=== PATIENT | male | born 1980 ===

== ENCOUNTER → 2020-09-05 12:36 | Outpatient (CLI) | payer OTHER, SELFPAY ==
--- NOTE | 2020-09-05 | DI.MRI.S_ITS ---
PROCEDURE: MR SHOULDER RT W CON INDICATIONS: Unspecified rotator cuff tear TECHNIQUE: After the administration of dilute intra-articular Gadolinium contrast, oblique coronal T1 and T2 spin echo with fat saturation, oblique sagittal T1 spin echo with and without fat saturation, oblique sagittal T2 fast spin echo with fat saturation, axial T1 spin echo with fat saturation through the shoulder. COMPARISON: [facility], , [place] ARTHROGRAM SHOULDER RT, 09/05/2020, 12:53. FINDINGS: Image quality: Excellent. Rotator cuff: There is moderate grade intrasubstance tearing of the distal supraspinatus tendon measuring 3 mm in anterior-posterior dimension. Additional low grade intrasubstance tearing is seen in the posterior supraspinatus/anterior infraspinatus tendon. These tears do not fill with intra-articular contrast material. Findings are superimposed on moderate supraspinatus and infraspinatus tendinosis. The teres minor tendon is intact. There is mild subscapularis tendinosis. No significant rotator cuff muscle atrophy is seen. Bones and bursae: Chronic traction cystic changes are seen at the greater tuberosity and the posterosuperior humeral head near the rotator cuff tendon insertions. No focal glenoid humeral cartilage defect is identified. No acute bone marrow contusions or fractures. No intra-articular loose body is seen. There is mild to moderate acromioclavicular joint osteoarthrosis. There is trace subacromial/subdeltoid bursal fluid that does not communicate with the glenohumeral joint space. Capsule and soft tissues: There is nondisplaced tearing of the superior to posterosuperior labrum. The long head of the biceps tendon demonstrates normal location and morphology. The rotator interval appears normal, without fibrosis. The inferior glenohumeral ligament is normal in thickness. IMPRESSION: 1. Nondisplaced tearing of the superior to posterosuperior labrum. 2. Moderate grade intrasubstance tearing of the supraspinatus tendon at the footprint. Additionally, low grade intrasubstance tearing is seen in the posterior supraspinatus/anterior infraspinatus tendon. Findings are superimposed on moderate tendinosis. 3. Mild subscapularis tendinosis. 4. Mild to moderate acromioclavicular joint osteoarthrosis. Dictated by: Talha Katz M.D. on 09/05/2020 at 14:12 Approved by: Talha Katz M.D. on 09/05/2020 at 14:21
--- NOTE | 2020-09-05 | DI.RAD.S_ITS ---
PROCEDURE: [place] ARTHROGRAM SHOULDER RT INDICATIONS: Unspecified rotator cuff tear TECHNIQUE: The indications, alternatives, benefits, risks, and complications of the procedure were explained to the patient. Written informed consent was obtained and placed in the chart. The shoulder was examined fluoroscopically and a site for needle placement chosen for entry into the glenohumeral joint from an anterior approach. The skin was prepped and draped in a sterile fashion, and 1% lidocaine infiltrated from skin down to joint capsule. A spinal needle was inserted into the glenohumeral joint, and a small amount of iodinated contrast media injected to confirm intra-articular placement of the needle tip. This was followed by approximately 12 mL dilute solution of a gadolinium containing MR contrast agent. The needle was removed and a dressing was applied. The patient was given postprocedural instructions and sent to the MR suite for MR imaging. FINDINGS: A single fluoroscopic spot image demonstrates intra-articular location of injected iodinated contrast. IMPRESSION: Successful fluoroscopically guided administration of dilute Gadolinium solution into the shoulder joint for MR arthrogram. Dictated by: Sunny Demarco M.D. on 09/05/2020 at 13:46 Approved by: Sunny Demarco M.D. on 09/05/2020 at 13:47
== END ==
PROVIDERS: PCP Family Medicine; Referring Provider Student in an Organized Health Care Education/Training Program; Visit Provider Student in an Organized Health Care Education/Training Program
DX: M75.111 Incomplete rotator cuff tear or rupture of right shoulder, not specified as traumatic (principal); M19.011 Primary osteoarthritis, right shoulder; S43.491A Other sprain of right shoulder joint, initial encounter
CPT/HCPCS: 23350; 73040; 73222; 77002